=== PATIENT | female | born 1995 | race African-American/Black ===

== ENCOUNTER 2016-08-25 11:23 | Emergency (ER) | payer OTHER ==
[~2016-08-25] VITALS: Ht 160 cm; Wt 72.6 kg
[2016-08-25] MEDS ORDERED: IBUPROFEN 600600 M1 PO (11:45)
[2016-08-25 12:53] VITALS: BP 131/92
== END 2016-08-25 12:54 | disposition home or self-care (01) ==
LOC: ER 11:23
DX: S01.411A Laceration without foreign body of right cheek and temporomandibular area, initial encounter (principal); F17.210 Nicotine dependence, cigarettes, uncomplicated; Y04.2XXA Assault by strike against or bumped into by another person, initial encounter; Y93.89 Activity, other specified; Y92.89 Other specified places as the place of occurrence of the external cause; Y99.8 Other external cause status